=== PATIENT | male | born 1970 | race Caucasian/White ===

== ENCOUNTER 2022-04-30 11:55 | Emergency (ER) | payer BC, SELFPAY ==
[2022-04-30 11:57] VITALS: BP 181/111; PULSE 113; RESP 16; TEMP 36.4; O2SAT 98; BMI 32.1
--- NOTE | 2022-04-30 12:13 | CT_ITS ---
STUDY: CT FACIAL BONES WITHOUT CONTRAST REASON FOR EXAM: Male, 51 years old. Right periorbital injury. RADIATION DOSAGE (If Supplied By Facility): CTDIvol = ( 29.38 ) mGy, DLP = ( 554.8 ) mGycm TECHNIQUE: The patient was scanned in a multi detector CT scanner. Sagittal and coronal images were reconstructed. Individualized dose optimization techniques were used for this CT. COMPARISON: None. FINDINGS: Right preorbital soft tissue hematoma extending to the anterior aspect of the right maxillary region. Small benign-appearing submental lymph nodes. Normal orbital wiggins and orbital contents. Normal nasal bones and anterior nasal spine. Normal facial bones. There is no demonstrated fracture. Mucosal cyst or retention cyst at the base of the right maxillary sinus. CT/Sinus/Facial Bone IMPRESSION: Right preorbital soft tissue swelling with extension into the right maxillary region. Electronically Signed: Donn Vasquez MD at 12:56 EDT ,
--- NOTE | 2022-04-30 12:13 | CT_ITS ---
STUDY: CT BRAIN WITHOUT CONTRAST REASON FOR EXAM: Male, 51 years old. Right orbital injury. Soft tissue swelling. RADIATION DOSAGE (If Supplied By Facility): CTDIvol = ( 44.99 ) mGy, DLP = ( 812.98 ) mGycm TECHNIQUE: Transaxial CT imaging of the brain was performed without administration of intravenous contrast material. Individualized dose optimization techniques were used for this CT. COMPARISON: No relevant priors. FINDINGS: Right preorbital soft tissue lipoma. Normal calvarium. Normal size ventricles and extra-axial spaces for the patient''s age. Normal white matter tracts of the cerebral hemispheres. Normal basal ganglia and thalami. Normal brainstem. Normal cerebellum. There is no intracranial hemorrhage. There are no findings of an acute ischemic infarction. Normal visualized paranasal sinuses. CT/Brain/Head without Contrast IMPRESSION: Right preorbital soft tissue hematoma. Electronically Signed: Donn Vasquez MD at 12:55 EDT ,
--- NOTE | 2022-04-30 13:00 | EX.ED.VIS.EY ---
HPI History of Present Illness Chief Complaint: Eye Problem Informant: patient Narrative Narrative: Presents for evaluation increasing eye swelling to the right eye. [place] 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 He was dazed but did not lose consciousness. No nausea or vomiting. He does not take anticoagulation medicines. He does wear glasses for distance. Woke up today had increasing swelling unable to see clearly for depth perception. He was recommended go to the hospital yesterday however he wanted to drive back from [place]. Mild headache. PFSH PFSH Medical History no medical history Allergy/AdvReac Type Severity Reaction Status Date / Time No Known Allergies Allergy Verified 04/30/22 11:56 Social History Smoking Status: Never smoker ROS ROS ED Constitutional Constitutional ED: Denies chills, fever(s) or sweats Eyes Eyes: Denies change in vision ENT ENT ED: Reports other Details: Right eye swelling ; Denies dysphagia or sore throat Cardiovascular Cardiovascular: Denies chest pain, leg edema, palpitations or racing heartbeat Respiratory/Chest Respiratory/Chest: Denies cough, dyspnea or dyspnea on exertion Gastrointestinal Gastrointestinal: Denies abdominal pain, diarrhea, nausea or vomiting Genitourinary Genitourinary ED: Denies dysuria, hematuria or urinary frequency Musculoskeletal Musculoskeletal: Denies back pain, extremity pain or neck pain Integumentary Denies rash or wounds Neurologic Neurologic: Denies headache(s), paresthesias or weakness EXAM Physical Exam Const Vital Signs: 04/30/22 11:57 Temperature 97.5 F L Temperature Source Temporal Pulse Rate 113 H Respiratory Rate 16 Blood Pressure 181/111 H Blood Pressure Mean 134 Pulse Ox 98 Oxygen Delivery Method Room Air Positive well nourished and well developed General Appearance ED: well developed and NAD HEENT Reports moist mucous membranes normocephalic Eyes PERRL, EOMs intact bilaterally and conjunctivae normal Eyes Narrative: Right periorbital ecchymosis with closure of the eye. Eyelid opened up, he had a lateral subconjunctival hemorrhage, there is no hyphema, negative Farhad sign. No proptosis or entrapment of the eye. Neck no lymphadenopathy and supple General: Negative for tenderness Chest Wall Chest: Negative for tenderness Resp normal respiratory effort and normal air movement Effort and Inspection: symmetric chest movement; Negative for respiratory distress Cardio regular rate, regular rhythm and no murmurs Peripheral Pulses: pulses 2+ throughout GI normal to inspection, nondistended, normoactive bowel sounds and non-tender Palpation: Negative for guarding or rebound tenderness present Back/Spine no CVA tenderness and no thoracic nor lumbar tenderness Extremity normal to inspection General Extremety ED: Negative for edema or tenderness General Extremity: Negative for edema Neuro oriented x3 and no sensory deficits noted Sensorium / Orientation: awake and alert Skin no rashes or lesions noted and no wounds MDM MDM MDM Narrative Medical decision making narrative: Patient head injury traumatic periorbital ecchymosis. Trauma scans head and face notes soft tissue swelling there is no fractures or intracranial process. Ice was provided. Discussed time and ice as needed. With his subconjunctival hemorrhage he is given follow-up with ophthalmology as an outpatient. Visual acuity stable per nursing. Reassured and all questions were answered. Radiography Diagnostic Testing: Clinical Impression(s) from Imaging Studies Brain CT 04/30/22 12:13 IMPRESSION: Right preorbital soft tissue hematoma. Electronically Signed: Donn Vasquez MD at 12:55 EDT , Facial/Sinus 04/30/22 12:13 IMPRESSION: Right preorbital soft tissue swelling with extension into the right maxillary region. Electronically Signed: Donn Vasquez MD at 12:56 EDT , Discharge Plan Triage Chief Complaint: Eye Problem ED Provider: Leo Rees Dx/Rx/DC Orders Clinical Impression: Traumatic periorbital ecchymosis of right eye, Traumatic subconjunctival hemorrhage of right eye Instructions: ED Eye Contusion, ED Subconjunctival Hemorrhage Primary Care Provider: Julián Whitehead Referrals: Dutch Coates MD [STAFF PHYSICIAN] - 3-5 Days Julián Whitehead MD [Primary Care Provider] - Disposition Disposition: Home, Self Care Discharge Date/Time: 04/30/22 13:29
[2022-04-30 13:14] VITALS: RESP 16
== END 2022-04-30 13:29 | disposition home or self-care (01) ==
PROVIDERS: Emergency Provider Emergency Medicine; PCP Family Medicine; Visit Provider Emergency Medicine
DX: S05.11XA Contusion of eyeball and orbital tissues, right eye, initial encounter (principal); W22.09XA Striking against other stationary object, initial encounter; Y93.89 Activity, other specified; Y99.0 Civilian activity done for income or pay; Y92.39 Other specified sports and athletic area as the place of occurrence of the external cause; H11.31 Conjunctival hemorrhage, right eye; Z97.3 Presence of spectacles and contact lenses
CPT/HCPCS: 70450; 70486; 99283